=== PATIENT | male | born 1975 | race Caucasian/White ===

== ENCOUNTER 2020-02-12 08:41 | Emergency (ER) | payer BC, MEDICAID ==
[2020-02-12] MEDS ORDERED: KETOROLAC TROMETHAMINE 60 MG/2 ML SDV IM ONE (09:18)
[2020-02-12] MEDS ORDERED: DEXAMETHASONE SOD PHOS INJ 10 MG/1 ML VIAL IM ONE (09:20)
--- NOTE | 2020-02-12 09:22 | ER Document Report ---
HPI - HPI Time Seen by Provider: 02/12/20 08:52 Context: Patient is a 48-year-old male who presents emergency department with a chief complaint of left shoulder pain. Symptoms started 3 days ago. States that he took ibuprofen, but ibuprofen has not helped him. He has been taking 800 mg every day since then. Patient states that he used to be a [employer] worker. He did lots of lifting bricks. He denies any new current injury. States that the pain is so bad, he feels his shoulder is moving out of place and has not been able to move his shoulder since the pain started. States the pain is in the anterior portion of his shoulder and states that it feels like it is in the joint. - CONSTITUTIONAL Constitutional: DENIES: Fever, Chills - NEURO Neurology: DENIES: Headache - CARDIOVASCULAR Cardiovascular: DENIES: Chest pain - RESPIRATORY Respiratory: DENIES: Trouble Breathing, Coughing - MUSCULOSKELETAL Musculoskeletal: REPORTS: Extremity pain - Left shoulder. DENIES: Swelling - DERM Skin Color: Normal Skin Problems: None Past Medical History - General Information source: Patient - Social History Smoking Status: Current Every Day Smoker Family History: Other - possible history of gallstones in mother; possible history of kidney stones in father Past Surgical History: Reports: Hx Appendectomy Vertical Provider Document - CONSTITUTIONAL Agree With Documented VS: Yes Exam Limitations: No Limitations General Appearance: No Apparent Distress - INFECTION CONTROL TRAVEL OUTSIDE OF THE [place] IN LAST 30 DAYS: No - HEENT HEENT: Atraumatic, Normocephalic, PERRLA - NECK Neck: Normal Inspection - RESPIRATORY Respiratory: Breath Sounds Normal, No Respiratory Distress - CARDIOVASCULAR Cardiovascular: Regular Rate, Regular Rhythm Pulses: Bounding: Radial - MUSCULOSKELETAL/EXTREMETIES Musculoskeletal/Extremeties: Tender - Anterior left shoulder. negative: FROM - decreased to left shoulder - NEURO Level of Consciousness: Awake, Alert, Appropriate Motor/Sensory: No Motor Deficit, No Sensory Deficit - DERM Integumentary: Warm, Dry, No Rash Course - Re-evaluation Re-evalutation: 02/12/20 10:37 Patient's shoulder x-ray is normal. He states that he feels better after receiving Decadron and Toradol. We will send him on oral Toradol. I explained to him to not take Toradol with ibuprofen. He will follow-up with primary care provider and orthopedic as needed. He is in agreement with this plan. Follow- up precautions were given. Verbal discharge instructions were given to the patient. They verbalized understanding. They are stable for discharge. - Vital Signs Vital signs: Temp Pulse Resp BP Pulse Ox 97.6 F 76 18 165/98 H 98 02/12/20 08:46 02/12/20 08:46 02/12/20 08:46 02/12/20 08:46 02/12/20 08:46 Discharge - Discharge Clinical Impression: Left shoulder pain Qualifiers: Chronicity: acute Qualified Code(s): M25.512 - Pain in left shoulder Condition: Stable Disposition: HOME, SELF-CARE Instructions: Sling as Treatment ([facility]) Additional Instructions: You are seen today in the emergency department for left shoulder pain. Your x- ray was normal. Please follow-up with an orthopedic doctor if needed. You can take Toradol as needed for pain. Do not take ibuprofen while taking Toradol. Use your sling to help with comfort. Follow-up with your primary care provider. Prescriptions: Ketorolac Tromethamine [Toradol 10 mg Tablet] 10 mg PO Q6HP PRN #20 tablet PRN Reason: Referrals: DORI BARLOW JR, DO [ACTIVE PROVISIONAL STAFF] - Follow up as needed ANDREA BRUSH MD [ACTIVE STAFF] - Follow up as needed BRIANNE VELASCO DO [ACTIVE STAFF] - Follow up as needed
--- NOTE | 2020-02-12 09:27 | RADIOLOGY REPORT (SQ) ---
EXAM DESCRIPTION: SHOULDER LEFT 2 OR MORE VIEWS IMAGES COMPLETED DATE/TIME: 02/12/2020 9:10 am REASON FOR STUDY: possible deformity COMPARISON: None. NUMBER OF VIEWS: Three views. TECHNIQUE: Internal rotation, external rotation, and Y view images acquired of the left shoulder. LIMITATIONS: None. FINDINGS: MINERALIZATION: Normal. BONES: No acute fracture. JOINTS: No dislocation. VISUALIZED LUNGS AND RIBS: No pneumothorax or rib fracture. SOFT TISSUES: No radiopaque foreign body. OTHER: No other finding. IMPRESSION: No acute osseous abnormality of the left shoulder. TECHNICAL DOCUMENTATION: JOB ID: [id number] 2010 [employer]- All Rights Reserved Reading location - IP/workstation name: [email or web address]
[2020-02-12 11:04] VITALS: BP 140/89
== END 2020-02-12 10:56 | disposition home or self-care (01) ==
LOC: ER 08:41
DX: M25.512 Pain in left shoulder (principal); Z79.899 Other long term (current) drug therapy; X50.9XXA Other and unspecified overexertion or strenuous movements or postures, initial encounter; F17.200 Nicotine dependence, unspecified, uncomplicated
CPT/HCPCS: 99283; 96372; 73030; J1885; J1100